=== PATIENT | male | born 1950 | race Caucasian/White ===

== ENCOUNTER → 2022-04-21 15:38 | Outpatient (BNVA) | payer MEDICARE, OTHER, SELFPAY | PROVIDERS: Visit Provider Internal Medicine | DX: Z00.00 Encounter for general adult medical examination without abnormal findings (principal) | CPT/HCPCS: 80053; 80061; 85025; G0103 ==

== ENCOUNTER → 2023-01-26 12:00 | Outpatient (BNVA) | payer MEDICARE, OTHER, SELFPAY | PROVIDERS: PCP Family Medicine; Visit Provider Family Medicine | DX: R73.09 Other abnormal glucose (principal) | CPT/HCPCS: 83036 ==

== ENCOUNTER → 2023-05-05 13:17 | Outpatient (BNVA) | payer MEDICARE, OTHER, SELFPAY | PROVIDERS: PCP Family Medicine; Visit Provider Family Medicine | DX: N40.0 Benign prostatic hyperplasia without lower urinary tract symptoms (principal); Z51.81 Encounter for therapeutic drug level monitoring | CPT/HCPCS: 80053; 84153; 85025 ==

== ENCOUNTER → 2024-05-09 11:59 | Outpatient (BNVA) | payer MEDICARE, SELFPAY | PROVIDERS: PCP Family Medicine; Visit Provider Family Medicine | DX: Z51.81 Encounter for therapeutic drug level monitoring (principal); E11.9 Type 2 diabetes mellitus without complications; N40.0 Benign prostatic hyperplasia without lower urinary tract symptoms; E78.2 Mixed hyperlipidemia; I49.9 Cardiac arrhythmia, unspecified; Z00.00 Encounter for general adult medical examination without abnormal findings; G47.10 Hypersomnia, unspecified | CPT/HCPCS: 80053; 83036; 84153; 85025 ==

== ENCOUNTER → 2024-05-16 08:26 | Outpatient (BNVA) | payer MEDICARE, SELFPAY | PROVIDERS: PCP Family Medicine; Visit Provider Family Medicine | DX: E78.2 Mixed hyperlipidemia (principal); Z13.220 Encounter for screening for lipoid disorders; I49.9 Cardiac arrhythmia, unspecified; G47.10 Hypersomnia, unspecified | CPT/HCPCS: 80061; 84443 ==

== ENCOUNTER → 2025-05-14 08:25 | Outpatient (BNVA) | payer MEDICARE, SELFPAY | PROVIDERS: PCP Family Medicine; Visit Provider Family Medicine | DX: Z51.81 Encounter for therapeutic drug level monitoring (principal); Z00.00 Encounter for general adult medical examination without abnormal findings; R73.03 Prediabetes; Z13.6 Encounter for screening for cardiovascular disorders; N40.0 Benign prostatic hyperplasia without lower urinary tract symptoms | CPT/HCPCS: 80053; 80061; 83036; 84153; 85025 ==

== ENCOUNTER → 2025-10-02 09:39 | Outpatient (BNVA) | payer MEDICARE, SELFPAY | PROVIDERS: PCP Family Medicine; Visit Provider Family Medicine | DX: R03.0 Elevated blood-pressure reading, without diagnosis of hypertension (principal) | CPT/HCPCS: 84550 ==